=== PATIENT | male | born 1990 | race Caucasian/White ===

== ENCOUNTER 2017-01-11 12:28 | Emergency (ER) | payer BC, OTHER ==
[~2017-01-11] VITALS: Ht 182.9 cm; Wt 63.5 kg
[2017-01-11 13:28] LABS: URINE BILIRUBIN - DIPSTICK MODERATE (NEG)
[2017-01-11 13:29] LABS: URINE BLOOD LARGE (NEG)
--- NOTE | 2017-01-11 13:53 | Emergency Room Report ---
History of Present Illness Time Seen by [id number] Presenting Problem in Triage Pt arrived:Walked Presenting Problem:PT C/O BLOOD IN URINE SINCE THIS AM Onset of symptoms date/time:/ or onset unknown for:MEDICAL HX UNKNOWN Treatment Prior to Arrival: [employer] Provided by: Sepsis Risk Assessment: Temp: 97.9 B/P: 100/67 MAP: 78 Pulse: 73 Resp: 20 Recent fever? N Clinical Suspician of Infection? N Mental Status: 1 - Regular (Normal Baseline) Sepsis Risk:Low Sepsis Risk Have you (or family members/close friends) recently traveled outside the [place]? N If Yes, where/when: Have you had exposure to infectious disease within the past month? N TB? Other? Specify: 26 years old male with recurrent painful hematuria. On December 10 she developed the hematuria was seen in [place] He Underwent a Urine Culture Positive E. coli He Was Given Cipro with Relief of His Symptoms. Today he woke up at 10:30 went to the bathroom and saw blood in the urine and felt discomfort after urination. This was repeated at 12:30 at the urgent treatment center. He was sent for workup for kidney stone. He denies having back pain or flank pain. He denies having nausea or vomiting. He has no fever or chills. He denies having abdominal pain or suprapubic pain. He is sexually active with one partner and claims that he occasionally uses condoms. Source patient, RN notes reviewed, old records, I reviewed the urine culture from [facility], it was positive E. coli. ALLERGIES Coded Allergies: No Known Allergies (01/11/17) History Medical History General CAD? No Angina: No NV: No Hypertension? No Hyperlipidemia? No CHF? No DVT? No PE? No COPD? No Asthma? No Anemia? No GERD? No Gastric ulcers? No GI Bleed? No Hernia? No Thyroid Problems? No Hypothyroidism? No CVA? No Seizures? No Diabetes? No Renal Insuffiency? No End Stage Renal Disease? No UTI? No Stones? No BPH? No GB Disease: No Nephritic Syndrome? No Asplenia? No Hepatitis? No Sickle Cell Disease? No Arthritis? No Migraines? No Cataracts? No Glaucoma? No MRSA? No HIV? No TB? No Anxiety? No Depression? No Cancer? No More? No Immunization Hx DT/Tetanus Unknown Surgical Hx Previous Surgery?N Social History Smoking Hx Smoker: Current Every Day Smoker Tobacco: Yes Type Cigarettes Alcohol Alcohol: No Review of Systems All Other Systems Reviewed and Negative Constitutional no symptoms reported Eyes no symptoms reported ENT no symptoms reported. Respiratory no symptoms reported Cardiovascular no symptoms reported Gastrointestinal no symptoms reported Genitourinary see HPI, hematuria, pain. Musculoskeletal no symptoms reported Skin no symptoms reported Psychiatric/Neurological no symptoms reported Physical Exam Vital Signs Vital Signs Date Time Temp Pulse Resp B/P Pulse O2 O2 Flow FiO2 Ox Delivery Rate 01/11 1338 97.9 73 20 100 96 01/11 1306 97.9 73 20 96 - WBC >12,000 or <4,000 or 10% bands? 2 or more SIRS Criteria Met? B/P: MAP:78 Creatinine >2.0? UA output<0.5ml/kg/hr for 2 hrs? Platelet count >100,000? Lactate >2.0mmol/1? INR >1.2 or PTT > than 60 sec? Evidence of Organ Dysfunction? Provider documented clinical suspician of infection? N Sepsis Criteria Count: 1 Sepsis Risk: Low Sepsis Risk General Appearance normal appearance, WD/WN Eye Exam - bilateral eye normal exam, bilateral eye PERRL, bilateral eye EOMI Ear, Nose, Throat hearing grossly normal, normal ENT inspection Neck normal inspection, non-tender, supple, full range of motion Respiratory Status Yes: trachea midline, chest symmetrical, non tender chest. No: respiratory distress. Lung Sounds bilateral: normal breath sounds, lungs clear. Cardiovascular normal exam, regular rate/rhythm, no peripheral edema, no gallop, no JVD, no murmur, no rub, normal peripheral pulses Peripheral Pulses Pulses normal Yes Peripheral Pulses 3+ femoral (R), 3+ femoral (L) Gastrointestinal normal bowel sounds, normal exam, non tender, soft, no organomegaly Back normal inspection, no CVA tenderness, no vertebral tenderness Extremities non-tender, normal range of motion, normal inspection Rectal normal rectal tone, tenderness, prostate was mildly enlarged, firm and moderately tender. No nodules. Male Genitalia normal genitalia, no hernia, circumcised, warts, no hernia orifices and no inguinal lymphadenopathy, normal penis and testicles with no penile discharge. Nurse present during exam? 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 No Results/Orders Laboratory Tests 01/11/17 1330: Sodium 138, Potassium 4.3, Chloride 102, Carbon Dioxide 29, BUN 15, Creatinine 0.8, Estimated Creat Clear 127, Estimated GFR (MDRD) 118, Glucose 86, Calcium 9.4, Total Bilirubin 0.7, AST 20, ALT 27, Alkaline Phosphatase 57, Total Protein 8.1, Albumin 4.5, Globulin 3.6 H, Albumin/Globulin Ratio 1.3, WBC 6.6, RBC 5.15 , Hgb 15.6, Hct 47.0, MCV 91.3, RDW 12.2, Plt Count 226, MPV 8.0, Gran % 59.6, Gran # 3.9, Lymphocytes % 29.3, Monocytes % 7.5, Eosinophils % 3.2, Basophils % 0.4, Lymphocytes # 1.9, Monocytes # 0.5, Eosinophils # 0.2, Basophils # 0.0, PUBS MCHC 33.2, MCH 30.3 01/11/17 1326: Urine Color OTHER, Urine Appearance CLOUDY, Urine pH 7.0, Ur Specific [place] >= 1.030, Urine Protein >=300, Urine Ketones NEGATIVE, Urine Blood LARGE, Urine Nitrate POSITIVE H, Urine Bilirubin MODERATE, Urine Urobilinogen 1.0, Ur Leukocyte Esterase LARGE, Urine Glucose NEGATIVE 01/11/17 1300: Opiates Screen NEGATIVE, Urine Methadone Screen NEGATIVE, Barbiturates NEGATIVE, Phencyclidine Screen NEGATIVE, Amphetamines Screen NEGATIVE, Benzodiazepines Screen NEGATIVE, Cocaine Screen NEGATIVE, Marijuana (THC) Screen NEGATIVE Orders Procedure Date/time Status DIET-NOTHING BY MOUTH 01/[address] ABD/PELVIS REQ 01/11 135 Complete CULTURE, URINE 01/11 1353 Active DRUG ABUSE SCREEN (10) 01/11 1353 Complete CBC WITH AUTO DIFF 01/11 1353 Complete CHEM 12 PROFILE 01/11 1353 Complete [facility] URINE DIPSTICK 01/11 132 Complete Departure Departure Time of Disposition 1350 Disposition DC Home or Self Care(routine) Clinical Impression Primary Impression: Genital warts Secondary Impressions: Acute prostatitis with hematuria Condition STABLE Referrals Kyleigh FRAZIER,Jorge Additional Instructions I had an extensive discussion with the patient about the next step of his medical care. I'm suspicious this is a recurrent infection due to prostatitis. I informed him that he has genital warts that need to be addressed . I gave a copy of his CT scan and a referral to Dr. Suarez and he verbalized understanding. 1- drink plenty of water 2- strain all urine 3- observe for worse pain, fever or vomiting. 4- start bactrim x 2 weeks. 5- follow up with Dr Suarez on urine culture and untill completely recovered. Discharge Counseling Counseled pt/family regarding diagnosis, test results, medications/RX, home care, follow up needs Prescriptions Current Visit Scripts Sulfamethoxazole/Trimethoprim (Bactrim Ds Tablet) 1 EACH PO Q12 #28 TAB Ref 1 ED Critical Care Critical Care No If Critical Care minutes are documented, the time involved in the performance of seperately reportable procedures was not counted toward critical care time documented. I directly delivered medical care to this critically ill and/or injured patient. Timely evaluation and treatment was necessary to address the significant organ system(s) dysfunction present in this patient. at 1637
--- NOTE | 2017-01-11 14:41 | RADIOLOGY REPORT PS360 ---
CT ABD PELVIS W/O CONTRAST COMPARISON: None HISTORY: Hematuria, groin pain, UTI one month ago TECHNIQUE: Multiple axial scans obtained from the hemidiaphragms the pelvic floor were performed without IV or oral contrast. Sagittal and coronal reformats were evaluated as well. FINDINGS: The lower lung rivera are clear. The liver spleen stomach pancreas and gallbladder appear normal. The adrenal glands are normal. The kidneys are normal size and no calculi and is no obstructive uropathy. There are few small nodes at the root of the mesentery. Small bowel appears normal. I do not definitely identify the appendix but no pericecal inflammatory changes. There is large amount stool in the ascending and transverse colon. The urinary bladder and prostate are normal. IMPRESSION: Essentially unremarkable CT scan abdomen and pelvis, no acute abdominal or pelvic pathology identified
[2017-01-11 14:45] LABS: AMPHETAMINES/METAMPHETAMINES NEGATIVE ng/mL (<1000)
[2017-01-11] MEDS ORDERED: BACTRIM DS TAB1 EACH PO (15:27)
[2017-01-11 15:43] LABS: HEMOGLOBIN 15.6 g/dL (14.1-18.0); LYMPH # 1.9 K/mm3 (0.7-4.5); LYMPH % 29.3 % (10-50)
[2017-01-11 16:33] VITALS: BP 100/67
--- OUTSIDE RECORDS SUMMARY | 2017-01-16 19:18 | External Medical Summary Rpt | CCD ---
Author Author [employer] Organization [employer] Address Unknown Phone Unavailable Purpose Continuity of Care Document - through 2016
--- OUTSIDE RECORDS SUMMARY | 2017-01-16 19:18 | External Medical Summary Rpt ---
Author Author [employer] Morales, [employer] Organization [employer] Address Unknown Phone Unavailable
--- OUTSIDE RECORDS SUMMARY | 2017-01-16 19:18 | External Medical Summary Rpt | CCD ---
Demographics Preferred Language Nigerian Marital Status Unknown Muslim Affiliation Unknown Race Unknown Ethnic Group Unknown Author Author , [employer] Address Unknown Phone Immunization No patient found.
--- OUTSIDE RECORDS SUMMARY | 2017-01-16 19:18 | External Medical Summary Rpt | CCD ---
Demographics Preferred Language [place] Citizen Marital Status Unknown Buddhist Affiliation Unknown Race Unknown Ethnic Group Unknown Author Author , [employer] Address Unknown Phone Immunization No patient found.
--- OUTSIDE RECORDS SUMMARY | 2017-01-16 19:18 | External Medical Summary Rpt | CCD ---
Author Author [employer] Address Unknown Phone Purpose Continuity of Care Document - through 2016
== END 2017-01-11 16:39 | disposition home or self-care (01) ==
LOC: UTC 12:28 → ER 12:38 → UTC 12:38 → ER 16:39
PROVIDERS: Emergency Medicine; Nurse Practitioner
DX: B07.9 Viral wart, unspecified (principal); N41.0 Acute prostatitis; F17.210 Nicotine dependence, cigarettes, uncomplicated